=== PATIENT | female | born 1930 | race Caucasian/White ===

== ENCOUNTER → 2016-11-27 | Outpatient (CLI) | payer MEDICARE, BC ==
[~2016-11-27] MED LIST: ALBUTEROL0.83 MG/ML IH; ALDACTONE 25MG25 M1 PO; ASPIRIN 81M81 MG/TA2 PO; ASPIRIN E.C. 8181 MG PO; CALCIUM 600MG+D1 TAB PO; CALCIUM600 MG PO; CARDIZEM CD 18180 MG PO; CARDIZEM CD 24240 MG PO; CLARITIN 1010 MG/TAB PO; COZAAR 50MG50 MG/TAB PO; DULCOLAX STOOL100 MG PO; ELIQUIS 5MG PO; EVISTA 60MG60 MG/TAB PO; EVISTA60 MG PO; FLOVENT DI50 MCG/Act IH; IMDUR 30MG30 MG/TAB PO; IRON325 M2 PO; K-DUR 10 MEQ T10 MEQ PO; LASIX 20MG TABL20 MG PO; LASIX 40MG TABL40 MG PO; LIPITOR 10MG10 MG PO; MIRALAX PA17 GM/Dose PO; NITRO-DUR0.2 MG/PAT TD; OS-CAL 500 + D1 TAB PO; PRIL40 PO; PROAIR HFA0.09 MG/AC IH; SENNA-LAX8.6 MG PO; SINGULAIR 110 MG/TAB PO; SYNTHROID 0.0.025 MG PO; SYNTHROID 0.10.15 MG PO; THYROID; TIROSINT150 MCG PO; TOPROL XL 25MG25 MG PO; TUMS500 MG PO; TYLENOL EXTRA500 M1 PO; ZAROXOLYN 2.52.5 MG PO; ZYRTEC 10MG10 MG PO
== END ==
LOC: ZCOL.LAB 16:30
DX: M79.662 Pain in left lower leg (principal); I83.892 Varicose veins of left lower extremity with other complications

== ENCOUNTER 2017-01-06 15:32 | Inpatient (IN) | payer MEDICARE, BC ==
[~2017-01-06] VITALS: Ht 157.5 cm; Wt 66.3 kg
[~2017-01-06 15:32] MED LIST changes: -ASPIRIN 81M81 MG/TA2 PO; -CALCIUM 600MG+D1 TAB PO; -CLARITIN 1010 MG/TAB PO; -DULCOLAX STOOL100 MG PO; -K-DUR 10 MEQ T10 MEQ PO; -MIRALAX PA17 GM/Dose PO
[2017-01-06] MEDS ORDERED: ASPIRIN 81M81 MG/TA2 PO (17:03)
[2017-01-06] MEDS ORDERED: CLARITIN 1010 MG/TAB PO (17:04)
[2017-01-06 17:05] LABS: INFLUENZA B NEGATIVE
[2017-01-06] MEDS ORDERED: CALCIUM 600MG+D1 TAB PO (17:05)
[2017-01-06 17:07] LABS: BASO % 0.2 % (0.0-2.0); EOS # 0.2 (0.0-0.7); GRAN # 6.8 (1.4-6.5); GRAN % 80.3 % (42.2-75.2); HEMATOCRIT 24.9 % (37.0-47.0); LYMPH # 0.5 (1.2-3.4); LYMPH % 5.8 % (20.0-51.0); MEAN CELL VOLUME 66 fl (80.0-100.0); MEAN CORPUSCULAR HEMOGLOBIN 20 pg (27.0-31.0); MEAN CORPUSCULAR HGB CONC 30 g/dl (33.0-37.0); MEAN PLATELET VOLUME 9.3 fl (7.4-10.4); MONO % 11.5 % (1.7-9.3); PLATELET COUNT 353 K/mm3 (130-400); REDCELL DISTRIBUTION WIDTH-CV 17.5 % (11.5-14.5); WHITE BLOOD COUNT 8.5 K/mm3 (4.8-10.8)
[2017-01-06 17:08] LABS: HEMOGLOBIN 7.5 g/dl (12.5-16.0); INR 1.1 (0.8-3.0); PROTHROMBIN TIME 12.6 SECONDS (9.7-12.8)
[2017-01-06 17:11] LABS: PARTIAL THROMBOPLASTIN TIME 27.6 SECONDS (26.0-37.0)
[2017-01-06 17:14] LABS: ALANINE AMINOTRANSFERASE 20 U/L (9-52); ALBUMIN 4.3 gm/dL (3.5-5.0); ALKALINE PHOSPHATASE 105 U/L (50-136); ANION GAP 11 mmol/L (7-16); BILIRUBIN,TOTAL 0.7 mg/dL (0.0-1.0); BLOOD UREA NITROGEN 47 mg/dL (7-17); CALCIUM 9.2 mg/dL (8.4-10.2); CARBON DIOXIDE 28 mmol/L (22-30); CHLORIDE 93 mmol/L (98-107); GLUCOSE 131 mg/dL (74-106); POTASSIUM 4.5 mmol/L (3.4-5.0); SODIUM 132 mmol/L (137-145); TOTAL PROTEIN 7.1 gm/dL (6.4-8.2)
[2017-01-06 17:25] LABS: B-TYPE NATRIURETIC PEPTIDE 3500 pg/mL (0-450)
[2017-01-06 17:29] LABS: TROPONIN-I < 0.012 ng/mL (0.000-0.034)
[2017-01-06 18:57] VITALS: BP 123/43; PULSE 84; TEMP 97.6
[2017-01-06 23:33] VITALS: BP 111/50; PULSE 78; TEMP 97.6
[2017-01-07] VITALS (7 sets, daily range): BP systolic 97–116; BP diastolic 46–70; PULSE 70–87; TEMP 98.1–99
[2017-01-07 07:02] LABS: RETIC % 1.1 % (0.5-3.52)
[2017-01-07 08:23] LABS: FERRITIN 10 ng/mL (11-264)
[2017-01-07 12:01] LABS: TOTAL IRON BINDING CAPACITY 457 ug/dL (265-497)
[2017-01-08] VITALS (14 sets, daily range): BP systolic 93–114; BP diastolic 36–55; PULSE 57–89; TEMP 97.2–99.6
[2017-01-08 07:07] LABS: ADJUSTED CALCIUM 9.4 mg/dL (8.4-10.2); ALBUMIN 3.8 gm/dL (3.5-5.0); BASO % 0.4 % (0.0-2.0); BILIRUBIN,TOTAL 0.9 mg/dL (0.0-1.0); CALCIUM 9.2 mg/dL (8.4-10.2); CREATININE, serum 1.55 mg/dL (0.52-1.25); EOS # 0.3 (0.0-0.7); EOS % 3.6 % (0-4.0); GRAN % 73.3 % (42.2-75.2); LYMPH # 0.6 (1.2-3.4); LYMPH % 9.3 % (20.0-51.0); MEAN CELL VOLUME 65 fl (80.0-100.0); MEAN CORPUSCULAR HGB CONC 30 g/dl (33.0-37.0); MEAN PLATELET VOLUME 9.5 fl (7.4-10.4); MONO # 0.9 (0.1-0.6); MONO % 13.1 % (1.7-9.3); PLATELET COUNT 349 K/mm3 (130-400); POTASSIUM 3.3 mmol/L (3.4-5.0); REDCELL DISTRIBUTION WIDTH-CV 17.6 % (11.5-14.5); TOTAL PROTEIN 6.4 gm/dL (6.4-8.2); WHITE BLOOD COUNT 6.9 K/mm3 (4.8-10.8)
[2017-01-08 07:12] LABS: HEMATOCRIT 24.6 % (37.0-47.0); MEAN CORPUSCULAR HEMOGLOBIN 19 pg (27.0-31.0)
[2017-01-08 07:13] LABS: HEMOGLOBIN 7.3 g/dl (12.5-16.0)
[2017-01-08 07:36] LABS: THYROID STIMULATING HORMONE 0.966 uIU/mL (0.465-4.680)
[2017-01-09 03:09] VITALS: BP 112/54; PULSE 74; TEMP 98.3
[2017-01-09 07:48] LABS: HEMOGLOBIN 10.1 g/dl (12.5-16.0)
[2017-01-09 07:49] VITALS: BP 98/47; PULSE 83; TEMP 98.7
[2017-01-09 12:56] VITALS: BP 97/51; PULSE 78; TEMP 98.1
[2017-01-09 15:12] VITALS: BP 108/47; PULSE 70; TEMP 98.6
[2017-01-09 20:16] VITALS: BP 124/62; PULSE 84; TEMP 97.8
[2017-01-09 23:27] VITALS: BP 119/46; PULSE 86; TEMP 98.4
[2017-01-10 04:32] VITALS: BP 112/49; PULSE 71; TEMP 98.1
[2017-01-10 07:12] LABS: MEAN CELL VOLUME 69 fl (80.0-100.0); MEAN CORPUSCULAR HGB CONC 30 g/dl (33.0-37.0); MEAN PLATELET VOLUME 9.5 fl (7.4-10.4); PLATELET COUNT 342 K/mm3 (130-400); RED BLOOD COUNT 4.68 M/mm3 (4.10-5.30); REDCELL DISTRIBUTION WIDTH-CV 21.8 % (11.5-14.5); WHITE BLOOD COUNT 6.2 K/mm3 (4.8-10.8)
[2017-01-10 07:18] LABS: HEMATOCRIT 32.4 % (37.0-47.0); HEMOGLOBIN 9.8 g/dl (12.5-16.0); MEAN CORPUSCULAR HEMOGLOBIN 21 pg (27.0-31.0)
[2017-01-10 07:28] LABS: POTASSIUM 3.9 mmol/L (3.4-5.0)
[2017-01-10 07:33] VITALS: BP 130/59; PULSE 84; TEMP 98
[2017-01-10 11:28] VITALS: BP 111/49; PULSE 76; TEMP 97.9
[2017-01-10 16:14] VITALS: BP 99/46; PULSE 72; TEMP 97.5
[2017-01-10 20:33] VITALS: BP 112/49; PULSE 71; TEMP 98.7
[2017-01-11 00:45] VITALS: BP 108/52; PULSE 72; TEMP 98.4
[2017-01-11 04:40] VITALS: BP 108/50; PULSE 64; TEMP 97.5
[2017-01-11] MEDS ORDERED: MIRALAX PA17 GM/Dose PO (08:31)
[2017-01-11] MEDS ORDERED: DULCOLAX STOOL100 MG PO (08:32)
[2017-01-11] MEDS ORDERED: K-DUR 10 MEQ T10 MEQ PO (08:35)
[2017-01-11] MEDS ORDERED: IRON325 M2 PO ×2 (08:48→11:16)
[2017-01-11 09:00] VITALS: BP 114/44; PULSE 78; TEMP 97.6
[2017-01-11 11:48] VITALS: BP 111/49; PULSE 74; TEMP 98.3
== END 2017-01-11 14:25 | disposition home or self-care (01) | DRG 291 ==
LOC: COL.ER 15:32 → MEDICAL 17:36
PROVIDERS: Emergency Medicine; Family Medicine
DX: I13.0 Hypertensive heart and chronic kidney disease with heart failure and stage 1 through stage 4 chronic kidney disease, or unspecified chronic kidney disease (principal); I50.33 Acute on chronic diastolic (congestive) heart failure; N18.4 Chronic kidney disease, stage 4 (severe); I27.2 Other secondary pulmonary hypertension; I48.91 Unspecified atrial fibrillation; I25.10 Atherosclerotic heart disease of native coronary artery without angina pectoris; D50.0 Iron deficiency anemia secondary to blood loss (chronic); J45.909 Unspecified asthma, uncomplicated; Z85.3 Personal history of malignant neoplasm of breast; E87.6 Hypokalemia
CPT/HCPCS: 99222-AI; 99231-AI; 99232-AI; 99239; J1644; J1940; J2060; J2270; J2916; P9016

== ENCOUNTER → 2017-02-16 | Outpatient (CLI) | payer MEDICARE, BC ==
[~2017-02-16] MED LIST changes: +ASPIRIN 81M81 MG/TA2 PO; +CALCIUM 600MG+D1 TAB PO; +CLARITIN 1010 MG/TAB PO; +DULCOLAX STOOL100 MG PO; +K-DUR 10 MEQ T10 MEQ PO; +MIRALAX PA17 GM/Dose PO
== END ==
LOC: ZCOL.LAB 17:29
DX: Z02.89 Encounter for other administrative examinations (principal)

== ENCOUNTER 2017-09-02 09:21 | Inpatient (IN) | payer MEDICARE, BC ==
[~2017-09-02] VITALS: Ht 157.5 cm; Wt 69.1 kg
[2017-09-02] VITALS (622 sets, daily range): BP systolic 91–117; BP diastolic 48–51; PULSE 76–84; TEMP 97.7–97.8; O2SAT 87–100
[2017-09-02] MEDS ORDERED: ZITHROMAX Z PA250 MG PO (09:45)
[2017-09-02] MEDS ORDERED: MUCINEX 60600 MG/TA1 PO (09:45)
[2017-09-02 10:07] LABS: BASO % 0.2 % (0.0-2.0); GRAN # 12.9 (1.4-6.5); HEMATOCRIT 41.8 % (37.0-47.0); HEMOGLOBIN 14.4 g/dl (12.5-16.0); LYMPH # 0.5 (1.2-3.4); LYMPH % 3.2 % (20.0-51.0); MEAN CELL VOLUME 89 fl (80.0-100.0); MEAN CORPUSCULAR HEMOGLOBIN 31 pg (27.0-31.0); MEAN CORPUSCULAR HGB CONC 34 g/dl (33.0-37.0); MEAN PLATELET VOLUME 10.6 fl (7.4-10.4); PLATELET COUNT 147 K/mm3 (130-400); RED BLOOD COUNT 4.71 M/mm3 (4.10-5.30); WHITE BLOOD COUNT 14.5 K/mm3 (4.8-10.8)
[2017-09-02 10:21] LABS: ADJUSTED CALCIUM 8.9 mg/dL (8.4-10.2); BILIRUBIN,TOTAL 0.7 mg/dL (0.0-1.0); CALCIUM 8.9 mg/dL (8.4-10.2); CREATININE, serum 1.57 mg/dL (0.52-1.25); POTASSIUM 3.5 mmol/L (3.4-5.0); TOTAL PROTEIN 6.7 gm/dL (6.4-8.2)
[2017-09-02 10:27] LABS: INFLUENZA A NEGATIVE; INFLUENZA B NEGATIVE
[2017-09-02 10:37] LABS: TROPONIN-I 0.048 ng/mL (0.000-0.034)
[2017-09-02] MEDS ORDERED: DULCOLAX STOOL100 MG PO (10:58)
[2017-09-02] MEDS ORDERED: IRON TABLETS325 MG PO (11:07)
[2017-09-02] MEDS ORDERED: LASIX 40MG TABL40 MG PO (11:08)
[2017-09-02] MEDS ORDERED: LINZESS145CAP PO (11:11)
[2017-09-02] MEDS ORDERED: LEVOXYL0.15 MG PO (11:11)
[2017-09-02] MEDS ORDERED: PRIL40 PO (11:12)
[2017-09-02] MEDS ORDERED: CLARITIN 1010 MG/TAB PO (11:12)
[2017-09-02] MEDS ORDERED: MIRALAX PA17 GM/Dose PO (11:13)
[2017-09-02] MEDS ORDERED: ALDACTONE 25MG25 M1 PO (11:13)
[2017-09-02] MEDS ORDERED: CARDIZEM CD 24240 MG PO (11:14)
[2017-09-02 16:04] LABS: ARTERIAL BLD GAS O2 SATURATION 94.3 % (92-100); ARTERIAL BLD GAS TCO2 CT 25.9; ARTERIAL BLOOD GAS BASE EXCESS -0.5 (-2-2); ARTERIAL BLOOD GAS HCO3 24.6 meq/L (22-26); ARTERIAL BLOOD GAS PHT 7.39 C (7.35-7.45); ARTERIAL BLOOD GAS PO2 75.5 mmHg (80-100); ARTERIAL BLOOD GAS PO2T 75.5 (80-100); ARTERIAL BLOOD GAS pH 7.39 (7.35-7.45); OXYHEMOGLOBIN 93.5 %
[2017-09-02 16:06] LABS: ATS? YES
[2017-09-02 19:58] LABS: COLLECTION METHOD CATHETER
[2017-09-02 20:33] LABS: MUCOUS Present /lpf; PH 5 (5-8); SQUAMOUS EPITHELIAL None Seen /hpf; URINE APPEARANCE Hazy; URINE BACTERIA None Seen /hpf; URINE BILIRUBIN Negative (NEGATIVE); URINE BLOOD Negative (NEGATIVE); URINE COLOR Yellow; URINE GLUCOSE Negative (NEGATIVE); URINE KETONE Negative (NEGATIVE); URINE LEUKOCYTE ESTERASE 1+ (NEGATIVE); URINE PROTEIN(semi-quant) Negative (NEGATIVE); URINE RBC None Seen /hpf; URINE UROBILINOGEN Negative (NEGATIVE)
[2017-09-02 21:24] LABS: URINE WBC 20-50 /hpf
[2017-09-02 21:40] LABS: VENOUS BLOOD GAS BE -2.2 (-4-4); VENOUS BLOOD GAS SAO2 69.5 % (60-80); VENOUS BLOOD GAS SITE CENTRAL LINE
[2017-09-03] VITALS (1404 sets, daily range): BP systolic 101–121; BP diastolic 53–78; PULSE 78–89; TEMP 97–98.4; O2SAT 81–100
[2017-09-03 00:28] LABS: ALLEN TEST NO
[2017-09-03 01:11] LABS: VENOUS BLOOD GAS BE -1.3 (-4-4); VENOUS BLOOD GAS SAO2 68.7 % (60-80); VENOUS BLOOD GAS SITE CENTRAL LINE
[2017-09-03 06:34] LABS: MEAN CELL VOLUME 92 fl (80.0-100.0); MEAN CORPUSCULAR HGB CONC 33 g/dl (33.0-37.0); MEAN PLATELET VOLUME 10.8 fl (7.4-10.4); PLATELET COUNT 116 K/mm3 (130-400); RED BLOOD COUNT 3.96 M/mm3 (4.10-5.30); WHITE BLOOD COUNT 18.9 K/mm3 (4.8-10.8)
[2017-09-03 06:35] LABS: HEMATOCRIT 36.4 % (37.0-47.0); HEMOGLOBIN 11.9 g/dl (12.5-16.0); MEAN CORPUSCULAR HEMOGLOBIN 30 pg (27.0-31.0)
[2017-09-03 06:51] LABS: ADJUSTED CALCIUM 9.3 mg/dL (8.4-10.2); ALBUMIN 3.1 gm/dL (3.5-5.0); BILIRUBIN,TOTAL 0.4 mg/dL (0.0-1.0); CALCIUM 8.6 mg/dL (8.4-10.2); CREATININE, serum 1.12 mg/dL (0.52-1.25); POTASSIUM 3.3 mmol/L (3.4-5.0); TOTAL PROTEIN 5.6 gm/dL (6.4-8.2)
[2017-09-03 07:22] LABS: BAND 55 % (0-10); LYMPHOCYTE 3 % (20.0-51.0); NEUTROPHILS 42 % (42.0-75.2); TOTAL CELLS COUNTED 100
[2017-09-03 07:23] LABS: PLATELET ESTIMATE NORMAL (NORMAL)
[2017-09-03 07:24] LABS: ADD PATHOLOGY DIFF REVIEW YES; OVALOCYTES 1+
[2017-09-03 07:59] LABS: INR 1.3 (0.8-3.0); PROTHROMBIN TIME 14.6 SECONDS (9.7-12.8)
[2017-09-03 08:06] LABS: PATHOLOGY DIFF REVIEW OK
[2017-09-03 08:29] LABS: VENOUS BLOOD GAS BE -0.9 (-4-4)
[2017-09-03 08:30] LABS: VENOUS BLOOD GAS SITE CENTRAL LINE
[2017-09-04] VITALS (723 sets, daily range): BP systolic 106–1128; BP diastolic 51–63; PULSE 86–100; TEMP 97.6–98.7; O2SAT 90–100
[2017-09-04 05:29] LABS: HEMATOCRIT 38.1 % (37.0-47.0); HEMOGLOBIN 12.4 g/dl (12.5-16.0); MEAN CELL VOLUME 93 fl (80.0-100.0); MEAN CORPUSCULAR HEMOGLOBIN 30 pg (27.0-31.0); MEAN CORPUSCULAR HGB CONC 33 g/dl (33.0-37.0); MEAN PLATELET VOLUME 11.1 fl (7.4-10.4); PLATELET COUNT 145 K/mm3 (130-400); RED BLOOD COUNT 4.11 M/mm3 (4.10-5.30)
[2017-09-04 05:33] LABS: ADD PATHOLOGY DIFF REVIEW NO; WHITE BLOOD COUNT 21.3 K/mm3 (4.8-10.8)
[2017-09-04 05:34] LABS: INR 1.1 (0.8-3.0)
[2017-09-04 05:42] LABS: BAND 15 % (0-10); LYMPHOCYTE 4 % (20.0-51.0); NEUTROPHILS 77 % (42.0-75.2); TOTAL CELLS COUNTED 100
[2017-09-04 05:43] LABS: ANISOCYTOSIS 1+; BURR CELLS 1+; POIKILOCYTOSIS 1+
[2017-09-04 05:46] LABS: ALBUMIN 3.3 gm/dL (3.5-5.0); BILIRUBIN,TOTAL 0.5 mg/dL (0.0-1.0); CREATININE, serum 1.08 mg/dL (0.52-1.25); TOTAL PROTEIN 5.9 gm/dL (6.4-8.2)
[2017-09-04 05:47] LABS: ADJUSTED CALCIUM 9.7 mg/dL (8.4-10.2); CALCIUM 9.1 mg/dL (8.4-10.2)
[2017-09-04 21:20] LABS: MAGNESIUM 1.9 mg/dL (1.6-2.3); PHOSPHOROUS 1.6 mg/dL (2.5-4.5); POTASSIUM 4.1 mmol/L (3.4-5.0)
[2017-09-05 05:25] VITALS: BP 128/45; PULSE 98; TEMP 98.8
[2017-09-05 06:58] LABS: MEAN CELL VOLUME 91 fl (80.0-100.0); MEAN CORPUSCULAR HEMOGLOBIN 30 pg (27.0-31.0); MEAN CORPUSCULAR HGB CONC 33 g/dl (33.0-37.0); MEAN PLATELET VOLUME 10.7 fl (7.4-10.4); PLATELET COUNT 152 K/mm3 (130-400); RED BLOOD COUNT 3.98 M/mm3 (4.10-5.30); WHITE BLOOD COUNT 13.6 K/mm3 (4.8-10.8)
[2017-09-05 06:59] LABS: HEMATOCRIT 36.2 % (37.0-47.0)
[2017-09-05 07:00] LABS: ADD PATHOLOGY DIFF REVIEW NO
[2017-09-05 07:06] LABS: INR 1.1 (0.8-3.0); PROTHROMBIN TIME 12.1 SECONDS (9.7-12.8)
[2017-09-05 07:08] LABS: ADJUSTED CALCIUM 9.7 mg/dL (8.4-10.2); ALBUMIN 2.9 gm/dL (3.5-5.0); BILIRUBIN,TOTAL 0.7 mg/dL (0.0-1.0); CALCIUM 8.8 mg/dL (8.4-10.2); CREATININE, serum 1.02 mg/dL (0.52-1.25); POTASSIUM 3.9 mmol/L (3.4-5.0); TOTAL PROTEIN 5.4 gm/dL (6.4-8.2)
[2017-09-05 07:49] LABS: DIGOXIN 0.5 ng/mL (0.8-2.0)
[2017-09-05 08:28] LABS: BAND 15 % (0-10); LYMPHOCYTE 5 % (20.0-51.0); NEUTROPHILS 79 % (42.0-75.2); PLATELET ESTIMATE NORMAL (NORMAL); TOTAL CELLS COUNTED 100
[2017-09-05 08:29] LABS: OVALOCYTES 1+; POIKILOCYTOSIS 1+
[2017-09-05 11:56] VITALS: BP 100/52; PULSE 105; TEMP 94.4
[2017-09-05 15:41] VITALS: BP 121/59; PULSE 94; TEMP 99
[2017-09-05 20:03] VITALS: BP 120/61; PULSE 99; TEMP 98.2
[2017-09-06 00:35] VITALS: BP 118/68; PULSE 86; TEMP 97.6
[2017-09-06 03:38] VITALS: BP 114/51; PULSE 108; TEMP 97.6
[2017-09-06 06:37] LABS: HEMOGLOBIN 12.1 g/dl (12.5-16.0); MEAN CELL VOLUME 90 fl (80.0-100.0); MEAN CORPUSCULAR HEMOGLOBIN 31 pg (27.0-31.0); MEAN CORPUSCULAR HGB CONC 34 g/dl (33.0-37.0); MEAN PLATELET VOLUME 10.7 fl (7.4-10.4); PLATELET COUNT 174 K/mm3 (130-400); RED BLOOD COUNT 3.97 M/mm3 (4.10-5.30); WHITE BLOOD COUNT 7.8 K/mm3 (4.8-10.8)
[2017-09-06 06:38] LABS: HEMATOCRIT 35.8 % (37.0-47.0)
[2017-09-06 06:39] LABS: ADD PATHOLOGY DIFF REVIEW NO
[2017-09-06 06:46] LABS: CALCIUM 8.6 mg/dL (8.4-10.2); CREATININE, serum 0.99 mg/dL (0.52-1.25); MAGNESIUM 1.7 mg/dL (1.6-2.3); PHOSPHOROUS 3.2 mg/dL (2.5-4.5)
[2017-09-06 07:19] LABS: BAND 11 % (0-10); EOSINOPHIL 1 % (0-4); LYMPHOCYTE 15 % (20.0-51.0); NEUTROPHILS 64 % (42.0-75.2); TOTAL CELLS COUNTED 100
[2017-09-06 07:20] LABS: PLATELET ESTIMATE NORMAL (NORMAL)
[2017-09-06 07:22] LABS: OVALOCYTES 1+; POIKILOCYTOSIS 1+
[2017-09-06 07:54] VITALS: BP 123/68; PULSE 94; TEMP 98
[2017-09-06 12:00] VITALS: BP 112/49; PULSE 85; TEMP 97.7
[2017-09-06 17:15] VITALS: BP 104/46; PULSE 84; TEMP 97.9
[2017-09-06 21:18] VITALS: BP 128/70; PULSE 86; TEMP 97.6
[2017-09-07 03:49] VITALS: BP 100/62; PULSE 82; TEMP 98
[2017-09-07 07:57] VITALS: BP 113/61; PULSE 91; TEMP 97.4
[2017-09-07 10:56] VITALS: BP 107/62; PULSE 76; TEMP 98.4
[2017-09-07 15:40] VITALS: BP 103/56; PULSE 58; TEMP 97.3
[2017-09-07] MEDS ORDERED: DIGITEK0.125 MG PO (16:20)
[2017-09-07] MEDS ORDERED: XOPENEX HF0.045 MG/A IH (16:23)
[2017-09-07] MEDS ORDERED: LEVAQUIN 5500 MG/TA1 PO (16:23)
== END 2017-09-07 20:10 | disposition home or self-care (01) | DRG 871 ==
LOC: COL.ER 09:21 → ICU 10:58 → MEDICAL 09-04 13:24
PROVIDERS: Emergency Medicine; Internal Medicine; Internal Medicine Pulmonary Disease
PROC: 02HV33Z Insertion of Infusion Device into Superior Vena Cava, Percutaneous Approach (ICD-10-PCS; principal; 2017-09-02)
DX: A41.9 Sepsis, unspecified organism (principal); J18.9 Pneumonia, unspecified organism; R65.21 Severe sepsis with septic shock; I21.A1 Myocardial infarction type 2; I50.32 Chronic diastolic (congestive) heart failure; I13.0 Hypertensive heart and chronic kidney disease with heart failure and stage 1 through stage 4 chronic kidney disease, or unspecified chronic kidney disease; N17.9 Acute kidney failure, unspecified; I27.22 Pulmonary hypertension due to left heart disease; I25.10 Atherosclerotic heart disease of native coronary artery without angina pectoris; I48.2 Chronic atrial fibrillation; N18.9 Chronic kidney disease, unspecified; D69.6 Thrombocytopenia, unspecified; I07.1 Rheumatic tricuspid insufficiency
CPT/HCPCS: 99232-AI; 99233-AI; 99238; C1751; C1894; J0692; J1644; J1720; J1940; J1956; J2543; J3370; J7030; J7050; J7060